=== PATIENT | male | born 1945 | race Asian ===

== ENCOUNTER 2023-07-29 03:46 | Day surgery (SDC) | payer OTHER, BC ==
[2023-07-25 16:12] VITALS: BMI 17.8
[~2023-07-29 03:46] MED LIST: ACETAMINOPHEN 325 MG TABLET (FP) PO PRN; CYCLOPENTOLATE HCL 1% OPHTH SOLN 2 ML BOTTLE OP SCH; KETOROLAC TROMETHAMINE 0.5% EYE DROP 1 DROP DROPS OP SCH; OFLOXACIN 0.3% OPHTHALMIC SOLUTION 5 ML BOTTLE OP SCH; PHENYLEPHRINE 2.5% OPHTH SOLN 15 ML BOTTLE OP SCH; TROPICAMIDE 1% OPHTH SOLN 15 ML BOTTLE OP SCH
[2023-07-29 06:21] VITALS: RESP 18
[2023-07-29] MEDS ORDERED: CYCLOPENTOLATE HCL 1% OPHTH SOLN 2 ML BOTTLE ONE (06:24)
[2023-07-29] MEDS ORDERED: KETOROLAC TROMETHAMINE 0.5% EYE DROP 1 DROP DROPS ONE (06:24)
[2023-07-29] MEDS ORDERED: PHENYLEPHRINE 2.5% OPTHALMIC DROP 2ML BOTTLE ONE (06:24)
[2023-07-29] MEDS ORDERED: TROPICAMIDE 1% OPHTH SOLN 15 ML BOTTLE ONE (06:25)
[2023-07-29] MEDS ORDERED: OFLOXACIN 0.3% OPHTHALMIC SOLUTION 5 ML BOTTLE ONE (06:25)
[2023-07-29] MEDS: OFLOXACIN 0.3% OPHTHALMIC SOLUTION 5 ML BOTTLE OD ONE ×3 (06:30→06:50)
[2023-07-29] MEDS: TROPICAMIDE 1% OPHTH SOLN 15 ML BOTTLE OD ONE ×3 (06:30→06:50)
[2023-07-29] MEDS: PHENYLEPHRINE 2.5% OPHTH SOLN 15 ML BOTTLE OD ONE ×3 (06:30→06:50)
[2023-07-29] MEDS: CYCLOPENTOLATE HCL 1% OPHTH SOLN 2 ML BOTTLE OD ONE ×3 (06:30→06:50)
[2023-07-29] MEDS: KETOROLAC TROMETHAMINE 0.5% EYE DROP 1 DROP DROPS OD ONE ×3 (06:30→06:50)
[2023-07-29] MEDS ORDERED: EPINEPHrine/PF 1 MG/1 ML (1:1,000) AMPULE ONE (07:10)
[2023-07-29] MEDS ORDERED: LIDOCAINE HCL/PF 1% SDV 5ML VIAL ONE (07:10)
[2023-07-29] MEDS ORDERED: BSS (NA/CA/MG/K) BALANCED SALT SOLUTION OPHTH SOLN 15 ML BOTTLE ONE (07:10)
[2023-07-29] MEDS ORDERED: POVIDONE-IODINE 5% OPHTHALMIC PREP 30 ML SOLUTION ONE (07:11)
[2023-07-29] MEDS ORDERED: VANCOMYCIN 500 MG VIAL (RESTRICTED TO ID ONLY) ONE (07:11)
[2023-07-29] MEDS ORDERED: PHENYLEPHRINE/KETOROLAC 4 ML VIAL IO ONE (07:11)
[2023-07-29] MEDS: TETRACAINE 0.5% OPHTH SOLN 2 ML BOTTLE OD ONE ×2 (07:32→08:05)
[2023-07-29] MEDS: POVIDONE-IODINE 5% OPHTHALMIC PREP 30 ML SOLUTION OD ONE ×2 (07:33→08:06)
[2023-07-29] MEDS: BSS (NA/CA/MG/K) BALANCED SALT SOLUTION OPHTH SOLN 15 ML BOTTLE OD ONE ×2 (07:33→08:14)
[2023-07-29] MEDS: PHENYLEPHRINE/KETOROLAC 4 ML VIAL IO ONE ×3 (07:34→08:25)
[2023-07-29] MEDS: CHONDROITIN SU A/HYALUR SOD 1 KIT IO ONE ×2 (07:34→08:21)
[2023-07-29] MEDS: EPINEPHrine/PF 1 MG/1 ML (1:1,000) AMPULE SQ ONE (07:34)
[2023-07-29] MEDS: LIDOCAINE HCL 1% PRESERVATIVE FREE - 30ML VIAL IO ONE ×2 (07:34→08:14)
[2023-07-29] MEDS ORDERED: MIDAZOLAM HCL 2 MG/2 ML SINGLE DOSE VIAL ONE (08:04)
[2023-07-29] MEDS ORDERED: FENTANYL CITRATE/PF 50 MCG/ML VIAL ONE (08:18)
[2023-07-29] MEDS: VANCOMYCIN 1 GM in D5W (PRE-DOCKED) 1,000 MG/250 ML (RESTRICTED TO ID ONLY IVPB ONE (08:19)
[2023-07-29] MEDS: VANCOMYCIN 500 MG VIAL (RESTRICTED TO ID ONLY) IVPB ONE (08:19)
[2023-07-29 09:37] VITALS: BP 123/63; PULSE 58; TEMP 98
== END 2023-07-29 09:25 | disposition home or self-care (01) ==
LOC: JASU-SURG 03:46
PROVIDERS: ATTEND Ophthalmology
PROC: 08RJ3JZ Replacement of Right Lens with Synthetic Substitute, Percutaneous Approach (ICD-10-PCS; principal; 2023-07-29 08:00)
DX: H26.9 Unspecified cataract (principal)
CPT/HCPCS: J1097; V2632

== ENCOUNTER 2023-08-20 04:28 | Day surgery (SDC) | payer OTHER, BC ==
[2023-08-13 11:00] VITALS: BMI 17.8
[2023-08-20 06:49] VITALS: RESP 18
[2023-08-20] MEDS: TROPICAMIDE 1% OPHTH SOLN 15 ML BOTTLE OS ONE ×3 (06:55→07:15)
[2023-08-20] MEDS: CYCLOPENTOLATE HCL 1% OPHTH SOLN 2 ML BOTTLE OS ONE ×3 (06:55→07:15)
[2023-08-20] MEDS: PHENYLEPHRINE 2.5% OPHTH SOLN 15 ML BOTTLE OS ONE ×3 (06:55→07:15)
[2023-08-20] MEDS: KETOROLAC TROMETHAMINE 0.5% EYE DROP 1 DROP DROPS OS ONE ×3 (06:55→07:15)
[2023-08-20] MEDS: OFLOXACIN 0.3% OPHTHALMIC SOLUTION 5 ML BOTTLE OS ONE ×3 (06:55→07:15)
[2023-08-20] MEDS ORDERED: OFLOXACIN 0.3% OPHTHALMIC SOLUTION 5 ML BOTTLE ONE (06:57)
[2023-08-20] MEDS ORDERED: KETOROLAC TROMETHAMINE 0.5% EYE DROP 1 DROP DROPS ONE (06:57)
[2023-08-20] MEDS ORDERED: PHENYLEPHRINE 2.5% OPTHALMIC DROP 2ML BOTTLE ONE (06:57)
[2023-08-20] MEDS ORDERED: CYCLOPENTOLATE HCL 1% OPHTH SOLN 2 ML BOTTLE ONE (06:57)
[2023-08-20] MEDS ORDERED: TROPICAMIDE 1% OPHTH SOLN 15 ML BOTTLE ONE (06:57)
[2023-08-20] MEDS ORDERED: LIDOCAINE HCL/PF 1% SDV 5ML VIAL ONE (07:20)
[2023-08-20] MEDS ORDERED: VANCOMYCIN 500 MG VIAL (RESTRICTED TO ID ONLY) ONE (07:20)
[2023-08-20] MEDS ORDERED: PHENYLEPHRINE/KETOROLAC 4 ML VIAL IO ONE (07:21)
[2023-08-20] MEDS ORDERED: BSS (NA/CA/MG/K) BALANCED SALT SOLUTION OPHTH SOLN 15 ML BOTTLE ONE (07:22)
[2023-08-20] MEDS ORDERED: TETRACAINE 0.5% OPHTH SOLN 2 ML BOTTLE ONE (07:22)
[2023-08-20] MEDS ORDERED: POVIDONE-IODINE 5% OPHTHALMIC PREP 30 ML SOLUTION ONE (07:23)
[2023-08-20] MEDS ORDERED: ACETAMINOPHEN 325 MG TABLET (FP) PO PRN (07:38)
[2023-08-20] MEDS ORDERED: OFLOXACIN 0.3% OPHTHALMIC SOLUTION 5 ML BOTTLE OP SCH (07:45)
[2023-08-20] MEDS ORDERED: KETOROLAC TROMETHAMINE 0.5% EYE DROP 1 DROP DROPS OP SCH (07:45)
[2023-08-20] MEDS ORDERED: PHENYLEPHRINE 2.5% OPTHALMIC DROP 2ML BOTTLE OU SCH (07:45)
[2023-08-20] MEDS ORDERED: CYCLOPENTOLATE HCL 1% OPHTH SOLN 2 ML BOTTLE OP SCH (07:45)
[2023-08-20] MEDS ORDERED: TROPICAMIDE 1% OPHTH SOLN 15 ML BOTTLE OP SCH (07:45)
[2023-08-20] MEDS ORDERED: MIDAZOLAM HCL 2 MG/2 ML SINGLE DOSE VIAL ONE (07:56)
[2023-08-20] MEDS: TETRACAINE 0.5% OPHTH SOLN 2 ML BOTTLE TP ONE (08:02)
[2023-08-20] MEDS: POVIDONE-IODINE 5% OPHTHALMIC PREP 30 ML SOLUTION OS ONE (08:05)
[2023-08-20] MEDS: BSS (NA/CA/MG/K) BALANCED SALT SOLUTION OPHTH SOLN 15 ML BOTTLE OS ONE (08:10)
[2023-08-20] MEDS: CHONDROITIN SU A/HYALUR SOD 1 KIT IO ONE (08:11)
[2023-08-20] MEDS: LIDOCAINE HCL 1% PRESERVATIVE FREE - 30ML VIAL IO ONE (08:11)
[2023-08-20] MEDS: PHENYLEPHRINE/KETOROLAC 4 ML VIAL IO ONE (08:21)
[2023-08-20] MEDS: VANCOMYCIN 500 MG VIAL (RESTRICTED TO ID ONLY) IVPB ONE ×2 (08:36)
[2023-08-20 10:02] VITALS: BP 142/71; PULSE 58; TEMP 97.8
== END 2023-08-20 09:30 | disposition home or self-care (01) ==
LOC: JASU-SURG 04:28
PROVIDERS: ATTEND Ophthalmology
PROC: 08RK3JZ Replacement of Left Lens with Synthetic Substitute, Percutaneous Approach (ICD-10-PCS; principal; 2023-08-20 08:00)
DX: H26.9 Unspecified cataract (principal)
CPT/HCPCS: J1097; V2632